=== PATIENT | male | born 1985 | race Two or more races ===

== ENCOUNTER 2018-07-06 19:10 | Inpatient (IN) | payer MEDICAID ==
[~2018-07-06] VITALS: Ht 175.3 cm; Wt 132.9 kg
[2018-07-06 20:27] VITALS: BP 134/81
[2018-07-06] MEDS ORDERED: PNEUMOCOCCAL VACCINE POLYVALENT 0.5 ML VIAL [PPSV23] IM ONE (20:45)
[2018-07-06] MEDS ORDERED: TraZODone HCL 50 MG TABLET PO SCH (21:00)
[2018-07-06] MEDS ORDERED: AMLO2.5T3 PO (22:17)
[2018-07-06] MEDS ORDERED: MELO-107 PO (22:17)
[2018-07-06] MEDS ORDERED: RANO500T3 PO (22:17)
[2018-07-06] MEDS ORDERED: ASPI81 PO (22:17)
[2018-07-06] MEDS ORDERED: PRAV20TA4 PO (22:17)
[2018-07-06] MEDS ORDERED: LOSA50TA25 PO (22:17)
[2018-07-06] MEDS ORDERED: NITR.4 SL (22:17)
[2018-07-06] MEDS ORDERED: METO25 PO (22:17)
[2018-07-06] MEDS ORDERED: ISOS20TA7 PO (22:17)
[2018-07-06] MEDS ORDERED: METF-960 PO (22:32)
[2018-07-06] MEDS ORDERED: TRAZ-219 PO (22:32)
[2018-07-06] MEDS ORDERED: SITA25 PO (22:32)
[2018-07-06] MEDS ORDERED: FAMO20 PO (22:32)
[2018-07-06] MEDS ORDERED: INSLAN SQ (22:32)
[2018-07-06] MEDS ORDERED: BECL10.6 IH (22:32)
[2018-07-06] MEDS ORDERED: ISON100 PO (22:32)
[2018-07-06] MEDS ORDERED: GLIP10 PO (22:32)
[2018-07-06] MEDS ORDERED: GABA-529 PO (22:32)
[2018-07-06] MEDS ORDERED: EPIN0.3P3 IM (22:32)
[2018-07-06] MEDS ORDERED: BACL10TA PO (22:32)
[2018-07-06] MEDS ORDERED: ALBU8.5H8 IH (22:32)
[2018-07-06] MEDS ORDERED: TRAM50TA4 PO (22:32)
[2018-07-07 04:45] VITALS: BP 143/92
[2018-07-07] MEDS ORDERED: DEXTROSE 50%-WATER 25 GM/50 ML SYRINGE IVP PRN (04:45)
[2018-07-07] MEDS ORDERED: NITROGLYCERIN 0.4 MG SUBLINGUAL TABLET #25 SL PRN (04:45)
[2018-07-07] MEDS ORDERED: BENZOCAINE/MENTHOL LOZENGE MM PRN (04:45)
[2018-07-07] MEDS ORDERED: MAGNESIUM HYDROXIDE SUSPENSION 30 ML UDCUP PO PRN (04:45)
[2018-07-07] MEDS ORDERED: MAG HYDROX/AL HYDROX/SIMETH ES 30 ML SUSPENSION UDCUP PO PRN (04:45)
[2018-07-07] MEDS ORDERED: BACITRACIN 28.4 GM OINTMENT TP PRN (04:45)
[2018-07-07] MEDS ORDERED: LOPERAMIDE HCL 2 MG CAPSULE PO PRN (04:45)
[2018-07-07] MEDS ORDERED: ACETAMINOPHEN 325 MG TABLET PO PRN (04:45)
[2018-07-07] MEDS ORDERED: PETROLATUM,WHITE 71 GM JELLY TP PRN (04:45)
[2018-07-07] MEDS ORDERED: IBUPROFEN 600 MG TABLET PO PRN (04:45)
[2018-07-07] MEDS ORDERED: TraMADol HCL 50 MG TABLET PO PRN (04:45)
[2018-07-07] MEDS ORDERED: ONDANSETRON HCL 4 MG TABLET PO PRN (04:45)
[2018-07-07] MEDS ORDERED: CloNIDine HCL 0.1 MG TABLET PO PRN (04:45)
[2018-07-07] MEDS ORDERED: ALBUTEROL SULFATE HFA 90 MCG/PUFF 8 GM INHALER IH PRN (04:45)
[2018-07-07 06:19] LABS: BASOPHILS % (AUTO) 0.9 % (0.0-2.0); EOSINOPHILS % (AUTO) 2.1 % (1.0-6.0); HEMATOCRIT 48.4 % (41-53); LYMPHOCYTES # (AUTO) 3.4 K/uL (1.0-4.8); MEAN CORPUSCULAR HEMOGLOBIN 31.7 pg (26.0-34.0); MEAN CORPUSCULAR HGB CONC 35.2 G/dL (31.0-37.0); MEAN CORPUSCULAR VOLUME 90 fL (80-100); MONOCYTES # (AUTO) 0.7 K/uL (0.1-1.0); MONOCYTES % (AUTO) 8.7 % (2.0-9.0); NEUTROPHILS # (AUTO) 3.7 K/uL (1.8-7.7); NEUTROPHILS % (AUTO) 46.3 % (40.0-70.0); PLATELET COUNT (AUTO) 177 K/uL (150-450); RED BLOOD CELL COUNT(AUTO) 5.36 MIL/uL (4.50-5.90); RED CELL DISTRIBUTION WIDTH 12.8 % (11.5-14.5)
[2018-07-07 06:20] LABS: GLUCOMETER DEV NAME(LOC) 3EI C; GLUCOSE,POINT OF CARE 308 MG/DL (70-110)
[2018-07-07 06:24] LABS: HEMOGLOBIN A1C 9.6 % (4.5-6.2)
[2018-07-07 06:50] LABS: ALANINE AMINOTRANSFERASE 34 U/L (12-78); ALBUMIN 3.5 g/dL (3.4-5.0); ALKALINE PHOSPHATASE 104 U/L (46-116); ANION GAP 6 mmol/L (8-16); ASPARTATE AMINOTRANSFERASE 13 U/L (15-37); BILIRUBIN,TOTAL 0.7 mg/dL (0.1-1.0); CALCIUM, TOTAL 9.1 mg/dL (8.8-10.5); CARBON DIOXIDE 31 mmol/L (22-29); CHLORIDE 100 mmol/L (98-107); CHOL/HDL RATIO 5.5 (4.2-7.3); CHOLESTEROL 186 mg/dL (131-200); CREATININE 0.72 mg/dL (0.60-1.30); FREE T4 (FREE THYROXINE) 1.22 ng/dL (0.76-1.46); GLOMERULAR FILTR. RATE CALC > 60 mL/min (>60); GLUCOSE,RANDOM 284 mg/dL (70-110); HDL CHOLESTEROL 34 mg/dL (40-60); LDL CHOL (CALC.) 118 mg/dL (0-130); POTASSIUM 4.2 mmol/L (3.5-5.1); SODIUM SERUM 137 mmol/L (136-145); TOTAL PROTEIN, SERUM 6.9 g/dL (6.4-8.2); TRIGLYCERIDES 171 mg/dL (15-150); UREA NITROGEN, BLOOD 9 mg/dL (7-18)
[2018-07-07 06:50] LABS: GLUCOMETER DEV NAME(LOC) 3EI C; GLUCOSE,POINT OF CARE 251 MG/DL (70-110)
[2018-07-07] MEDS: INSULIN LISPRO 100 UNITS/ML SQ PRN ×4 (06:58→21:02)
[2018-07-07] MEDS ORDERED: ESCITALOPRAM OXALATE 10 MG TABLET PO SCH (09:00)
[2018-07-07] MEDS: DOCUSATE SODIUM 100 MG CAPSULE PO SCH (09:09)
[2018-07-07] MEDS: OMEPRAZOLE 20 MG CAPSULE PO SCH (09:09)
[2018-07-07] MEDS: ASPIRIN 81 MG CHEWABLE TABLET PO SCH (09:09)
[2018-07-07] MEDS: METOPROLOL TARTRATE 25 MG TABLET PO SCH ×2 (09:09→16:45)
[2018-07-07] MEDS: MELOXICAM 7.5 MG TABLET PO SCH (09:10)
[2018-07-07] MEDS: BECLOMETHASONE DIPR HFA 40 MCG/PUFF 10.6 GM INHALER IH SCH (09:10)
[2018-07-07] MEDS: LOSARTAN POTASSIUM 50 MG TABLET PO SCH (09:10)
[2018-07-07] MEDS: AmLODIPine BESYLATE 2.5 MG TABLET PO SCH (09:10)
[2018-07-07] MEDS: ISOSORBIDE MONONITRATE 30 MG ER TABLET PO SCH (09:10)
[2018-07-07] MEDS: BACLOFEN 10 MG TABLET PO SCH ×3 (09:10→16:45)
[2018-07-07 09:57] VITALS: BP 137/88
[2018-07-07 11:54] LABS: GLUCOMETER DEV NAME(LOC) 3EI C; GLUCOSE,POINT OF CARE 260 MG/DL (70-110)
[2018-07-07] MEDS: GABAPENTIN 100 MG CAPSULE PO SCH ×3 (12:26→20:57)
[2018-07-07 16:54] LABS: GLUCOMETER DEV NAME(LOC) 3EI C; GLUCOSE,POINT OF CARE 385 MG/DL (70-110)
[2018-07-07 18:53] VITALS: BP 150/79
[2018-07-07 20:10] VITALS: BP 150/79
[2018-07-07 20:53] LABS: GLUCOMETER DEV NAME(LOC) 3EI C; GLUCOSE,POINT OF CARE 378 MG/DL (70-110)
[2018-07-07] MEDS: PRAVASTATIN SODIUM 20 MG TABLET PO SCH (20:56)
[2018-07-07] MEDS: INSULIN GLARGINE,HUM.REC.ANLOG 100 UNITS/ML SQ SCH (20:59)
[2018-07-08 05:34] LABS: GLUCOMETER DEV NAME(LOC) 3EI C; GLUCOSE,POINT OF CARE 316 MG/DL (70-110)
[2018-07-08] MEDS: INSULIN LISPRO 100 UNITS/ML SQ PRN ×4 (07:02→21:19)
[2018-07-08 08:41] VITALS: BP 110/67
[2018-07-08] MEDS ORDERED: DULoxetine HCL 20 MG CAPSULE PO SCH (09:00)
[2018-07-08] MEDS: METOPROLOL TARTRATE 25 MG TABLET PO SCH ×2 (09:28→16:12)
[2018-07-08] MEDS: AmLODIPine BESYLATE 2.5 MG TABLET PO SCH (09:28)
[2018-07-08] MEDS: MELOXICAM 7.5 MG TABLET PO SCH (09:28)
[2018-07-08] MEDS: PYRIDOXINE HCL 50 MG TABLET PO SCH (09:28)
[2018-07-08] MEDS: BACLOFEN 10 MG TABLET PO SCH ×3 (09:28→16:12)
[2018-07-08] MEDS: OMEPRAZOLE 20 MG CAPSULE PO SCH (09:28)
[2018-07-08] MEDS: ISONIAZID 300 MG TABLET PO SCH (09:28)
[2018-07-08] MEDS: ISOSORBIDE MONONITRATE 30 MG ER TABLET PO SCH (09:28)
[2018-07-08] MEDS: BECLOMETHASONE DIPR HFA 40 MCG/PUFF 10.6 GM INHALER IH SCH (09:29)
[2018-07-08] MEDS: LOSARTAN POTASSIUM 50 MG TABLET PO SCH (09:29)
[2018-07-08] MEDS: ASPIRIN 81 MG CHEWABLE TABLET PO SCH (09:29)
[2018-07-08] MEDS: GABAPENTIN 100 MG CAPSULE PO SCH ×2 (09:29→13:37)
[2018-07-08] MEDS: DOCUSATE SODIUM 100 MG CAPSULE PO SCH (09:29)
[2018-07-08 11:44] LABS: GLUCOMETER DEV NAME(LOC) 3EI C; GLUCOSE,POINT OF CARE 355 MG/DL (70-110)
[2018-07-08] MEDS: GABAPENTIN 300 MG CAPSULE PO SCH (16:12)
[2018-07-08 16:30] LABS: GLUCOMETER DEV NAME(LOC) 3EI C; GLUCOSE,POINT OF CARE 364 MG/DL (70-110)
[2018-07-08 19:52] VITALS: BP 118/69
[2018-07-08] MEDS: TraZODone HCL 100 MG TABLET PO SCH (21:15)
[2018-07-08] MEDS: PRAZOSIN HCL 1 MG CAPSULE PO SCH (21:15)
[2018-07-08] MEDS: PRAVASTATIN SODIUM 20 MG TABLET PO SCH (21:15)
[2018-07-08 21:19] LABS: GLUCOMETER DEV NAME(LOC) 3EI C; GLUCOSE,POINT OF CARE 304 MG/DL (70-110)
[2018-07-08] MEDS: INSULIN GLARGINE,HUM.REC.ANLOG 100 UNITS/ML SQ SCH (21:20)
[2018-07-09 05:49] LABS: GLUCOMETER DEV NAME(LOC) 3EI C; GLUCOSE,POINT OF CARE 312 MG/DL (70-110)
[2018-07-09] MEDS: INSULIN LISPRO 100 UNITS/ML SQ PRN ×4 (07:13→21:02)
[2018-07-09] MEDS ORDERED: MELOXICAM 7.5 MG TABLET PO SCH (07:30)
[2018-07-09] MEDS: AmLODIPine BESYLATE 2.5 MG TABLET PO SCH (09:39)
[2018-07-09] MEDS: BECLOMETHASONE DIPR HFA 40 MCG/PUFF 10.6 GM INHALER IH SCH (09:39)
[2018-07-09] MEDS: GABAPENTIN 300 MG CAPSULE PO SCH ×3 (09:39→16:49)
[2018-07-09] MEDS: BACLOFEN 10 MG TABLET PO SCH ×3 (09:39→16:50)
[2018-07-09] MEDS: OMEPRAZOLE 20 MG CAPSULE PO SCH (09:39)
[2018-07-09] MEDS: ISONIAZID 300 MG TABLET PO SCH (09:39)
[2018-07-09] MEDS: DULoxetine HCL 30 MG CAPSULE PO SCH (09:39)
[2018-07-09] MEDS: METOPROLOL TARTRATE 25 MG TABLET PO SCH ×2 (09:39→16:52)
[2018-07-09] MEDS: DOCUSATE SODIUM 100 MG CAPSULE PO SCH (09:40)
[2018-07-09] MEDS: ISOSORBIDE MONONITRATE 30 MG ER TABLET PO SCH (09:40)
[2018-07-09] MEDS: ASPIRIN 81 MG CHEWABLE TABLET PO SCH (09:40)
[2018-07-09] MEDS: LOSARTAN POTASSIUM 50 MG TABLET PO SCH (09:40)
[2018-07-09] MEDS: PYRIDOXINE HCL 50 MG TABLET PO SCH (09:40)
[2018-07-09 10:01] VITALS: BP 123/63
[2018-07-09 11:35] LABS: GLUCOMETER DEV NAME(LOC) 3EI C; GLUCOSE,POINT OF CARE 334 MG/DL (70-110)
[2018-07-09] MEDS ORDERED: ISOS30TA6 PO (12:35)
[2018-07-09] MEDS: DICLOFENAC SODIUM 1% 100 GM GEL [2GM] TP SCH ×2 (13:39→20:35)
[2018-07-09 16:54] LABS: GLUCOMETER DEV NAME(LOC) 3EI C; GLUCOSE,POINT OF CARE 276 MG/DL (70-110)
[2018-07-09] MEDS: PRAVASTATIN SODIUM 20 MG TABLET PO SCH (20:33)
[2018-07-09] MEDS: PRAZOSIN HCL 1 MG CAPSULE PO SCH (20:33)
[2018-07-09] MEDS: TraZODone HCL 100 MG TABLET PO SCH (20:33)
[2018-07-09 20:44] LABS: GLUCOMETER DEV NAME(LOC) 3EI C; GLUCOSE,POINT OF CARE 281 MG/DL (70-110)
[2018-07-09 20:52] VITALS: BP 122/74
[2018-07-09] MEDS: HYDROCODONE/ACETAMINOPHEN 5-325 MG TABLET PO PRN (20:59)
[2018-07-09] MEDS ORDERED: INSULIN GLARGINE,HUM.REC.ANLOG 100 UNITS/ML SQ SCH (21:00)
[2018-07-09] MEDS: INSULIN GLARGINE,HUM.REC.ANLOG 100 UNITS/ML SQ SCH (21:01)
[2018-07-09 21:59] VITALS: BP 125/77
[2018-07-09] MEDS: ZOLPIDEM TARTRATE 5 MG TABLET PO PRN (23:54)
[2018-07-09] MEDS: LORazepam 1 MG TABLET PO PRN (23:54)
[2018-07-10 05:34] LABS: GLUCOMETER DEV NAME(LOC) 3EI C; GLUCOSE,POINT OF CARE 235 MG/DL (70-110)
[2018-07-10] MEDS: INSULIN LISPRO 100 UNITS/ML SQ PRN ×4 (07:18→21:25)
[2018-07-10] MEDS: DOCUSATE SODIUM 100 MG CAPSULE PO SCH (08:59)
[2018-07-10] MEDS: ASPIRIN 81 MG CHEWABLE TABLET PO SCH (08:59)
[2018-07-10] MEDS: BECLOMETHASONE DIPR HFA 40 MCG/PUFF 10.6 GM INHALER IH SCH (08:59)
[2018-07-10] MEDS: DULoxetine HCL 30 MG CAPSULE PO SCH (08:59)
[2018-07-10] MEDS: BACLOFEN 10 MG TABLET PO SCH ×3 (09:00→16:53)
[2018-07-10] MEDS: METOPROLOL TARTRATE 25 MG TABLET PO SCH ×2 (09:00→16:52)
[2018-07-10] MEDS: OMEPRAZOLE 20 MG CAPSULE PO SCH (09:00)
[2018-07-10] MEDS: GABAPENTIN 300 MG CAPSULE PO SCH ×3 (09:00→16:52)
[2018-07-10] MEDS: AmLODIPine BESYLATE 2.5 MG TABLET PO SCH (09:00)
[2018-07-10] MEDS: ISONIAZID 300 MG TABLET PO SCH (09:01)
[2018-07-10] MEDS: DICLOFENAC SODIUM 1% 100 GM GEL [2GM] TP SCH ×2 (09:01→21:24)
[2018-07-10] MEDS: PYRIDOXINE HCL 50 MG TABLET PO SCH (09:01)
[2018-07-10] MEDS: ISOSORBIDE MONONITRATE 30 MG ER TABLET PO SCH (09:01)
[2018-07-10] MEDS: LOSARTAN POTASSIUM 50 MG TABLET PO SCH (09:02)
[2018-07-10] MEDS: INSULIN GLARGINE,HUM.REC.ANLOG 100 UNITS/ML SQ SCH ×2 (09:10→21:24)
[2018-07-10 10:34] VITALS: BP 126/65
[2018-07-10] MEDS: LORazepam 1 MG TABLET PO PRN ×2 (11:17→16:52)
[2018-07-10 11:34] LABS: GLUCOMETER DEV NAME(LOC) 3EI C; GLUCOSE,POINT OF CARE 256 MG/DL (70-110)
[2018-07-10 12:50] VITALS: BP 130/70
[2018-07-10] MEDS: HYDROCODONE/ACETAMINOPHEN 5-325 MG TABLET PO PRN (12:55)
[2018-07-10] MEDS: QUEtiapine FUMARATE 100 MG TABLET PO PRN (16:53)
[2018-07-10 17:00] LABS: GLUCOMETER DEV NAME(LOC) 3EI C; GLUCOSE,POINT OF CARE 363 MG/DL (70-110)
[2018-07-10 18:03] VITALS: BP 107/80
[2018-07-10] MEDS: TraZODone HCL 100 MG TABLET PO SCH (20:32)
[2018-07-10] MEDS: PRAZOSIN HCL 1 MG CAPSULE PO SCH (20:32)
[2018-07-10] MEDS: PRAVASTATIN SODIUM 20 MG TABLET PO SCH (20:32)
[2018-07-10 20:49] LABS: GLUCOMETER DEV NAME(LOC) 3EI C; GLUCOSE,POINT OF CARE 330 MG/DL (70-110)
[2018-07-11 05:39] LABS: GLUCOMETER DEV NAME(LOC) 3EI C; GLUCOSE,POINT OF CARE 251 MG/DL (70-110)
[2018-07-11] MEDS: INSULIN LISPRO 100 UNITS/ML SQ PRN ×4 (06:43→21:37)
[2018-07-11 09:50] VITALS: BP 111/78
[2018-07-11] MEDS: LORazepam 1 MG TABLET PO PRN ×2 (09:55→21:35)
[2018-07-11 09:56] VITALS: BP 126/77
[2018-07-11] MEDS: GABAPENTIN 300 MG CAPSULE PO SCH ×3 (09:56→16:41)
[2018-07-11] MEDS: HYDROCODONE/ACETAMINOPHEN 5-325 MG TABLET PO PRN (09:56)
[2018-07-11] MEDS: OMEPRAZOLE 20 MG CAPSULE PO SCH (09:56)
[2018-07-11] MEDS: DULoxetine HCL 30 MG CAPSULE PO SCH (09:57)
[2018-07-11] MEDS: METOPROLOL TARTRATE 25 MG TABLET PO SCH ×2 (09:57→16:41)
[2018-07-11] MEDS: BACLOFEN 10 MG TABLET PO SCH ×3 (09:57→16:41)
[2018-07-11] MEDS: DOCUSATE SODIUM 100 MG CAPSULE PO SCH (09:57)
[2018-07-11] MEDS: ASPIRIN 81 MG CHEWABLE TABLET PO SCH (09:57)
[2018-07-11] MEDS: LOSARTAN POTASSIUM 50 MG TABLET PO SCH (09:58)
[2018-07-11] MEDS: ISOSORBIDE MONONITRATE 30 MG ER TABLET PO SCH (09:58)
[2018-07-11] MEDS: ISONIAZID 300 MG TABLET PO SCH (09:58)
[2018-07-11] MEDS: AmLODIPine BESYLATE 2.5 MG TABLET PO SCH (09:59)
[2018-07-11] MEDS: BECLOMETHASONE DIPR HFA 40 MCG/PUFF 10.6 GM INHALER IH SCH (09:59)
[2018-07-11] MEDS: PYRIDOXINE HCL 50 MG TABLET PO SCH (09:59)
[2018-07-11] MEDS: DICLOFENAC SODIUM 1% 100 GM GEL [2GM] TP SCH ×2 (10:00→21:35)
[2018-07-11] MEDS: INSULIN GLARGINE,HUM.REC.ANLOG 100 UNITS/ML SQ SCH ×2 (10:17→21:36)
[2018-07-11] MEDS: QUEtiapine FUMARATE 100 MG TABLET PO PRN (11:22)
[2018-07-11 11:34] LABS: GLUCOMETER DEV NAME(LOC) 3EI C; GLUCOSE,POINT OF CARE 284 MG/DL (70-110)
[2018-07-11 16:44] LABS: GLUCOMETER DEV NAME(LOC) 3EI C; GLUCOSE,POINT OF CARE 277 MG/DL (70-110)
[2018-07-11 20:10] VITALS: BP 117/76
[2018-07-11 21:34] LABS: GLUCOMETER DEV NAME(LOC) 3EI C; GLUCOSE,POINT OF CARE 312 MG/DL (70-110)
[2018-07-11] MEDS: ZOLPIDEM TARTRATE 5 MG TABLET PO PRN (21:35)
[2018-07-11] MEDS: PRAZOSIN HCL 1 MG CAPSULE PO SCH (21:35)
[2018-07-11] MEDS: PRAVASTATIN SODIUM 20 MG TABLET PO SCH (21:35)
[2018-07-11] MEDS: TraZODone HCL 100 MG TABLET PO SCH (21:35)
[2018-07-12 05:34] LABS: GLUCOMETER DEV NAME(LOC) 3EI C; GLUCOSE,POINT OF CARE 220 MG/DL (70-110)
[2018-07-12] MEDS: INSULIN LISPRO 100 UNITS/ML SQ PRN ×3 (07:18→21:13)
[2018-07-12] MEDS: GABAPENTIN 300 MG CAPSULE PO SCH ×3 (08:07→16:11)
[2018-07-12] MEDS: DOCUSATE SODIUM 100 MG CAPSULE PO SCH (08:07)
[2018-07-12] MEDS: DULoxetine HCL 60 MG CAPSULE PO SCH (08:07)
[2018-07-12] MEDS: ASPIRIN 81 MG CHEWABLE TABLET PO SCH (08:07)
[2018-07-12] MEDS: METOPROLOL TARTRATE 25 MG TABLET PO SCH ×2 (08:07→16:11)
[2018-07-12] MEDS: OMEPRAZOLE 20 MG CAPSULE PO SCH (08:07)
[2018-07-12] MEDS: PYRIDOXINE HCL 50 MG TABLET PO SCH (08:08)
[2018-07-12] MEDS: AmLODIPine BESYLATE 2.5 MG TABLET PO SCH (08:08)
[2018-07-12] MEDS: LOSARTAN POTASSIUM 50 MG TABLET PO SCH (08:08)
[2018-07-12] MEDS: BACLOFEN 10 MG TABLET PO SCH ×3 (08:08→16:12)
[2018-07-12] MEDS: ISOSORBIDE MONONITRATE 30 MG ER TABLET PO SCH (08:08)
[2018-07-12] MEDS: ISONIAZID 300 MG TABLET PO SCH (08:08)
[2018-07-12] MEDS: BECLOMETHASONE DIPR HFA 40 MCG/PUFF 10.6 GM INHALER IH SCH (08:09)
[2018-07-12] MEDS: DICLOFENAC SODIUM 1% 100 GM GEL [2GM] TP SCH ×2 (08:09→21:06)
[2018-07-12] MEDS: INSULIN GLARGINE,HUM.REC.ANLOG 100 UNITS/ML SQ SCH ×2 (08:10→21:09)
[2018-07-12] MEDS: HYDROCODONE/ACETAMINOPHEN 5-325 MG TABLET PO PRN ×2 (08:11→21:05)
[2018-07-12] MEDS: QUEtiapine FUMARATE 100 MG TABLET PO PRN ×3 (08:11→19:11)
[2018-07-12 08:12] VITALS: BP 132/95
[2018-07-12] MEDS: LORazepam 1 MG TABLET PO PRN ×3 (08:12→19:11)
[2018-07-12] MEDS: SitaGLIPtin PHOSPHATE 50 MG TABLET PO SCH (09:34)
[2018-07-12] MEDS: GlipiZIDE 10 MG TABLET PO SCH (09:34)
[2018-07-12 11:29] LABS: GLUCOMETER DEV NAME(LOC) 3EI C; GLUCOSE,POINT OF CARE 327 MG/DL (70-110)
[2018-07-12] MEDS: MetFORMIN HCL 500 MG TABLET PO SCH (16:11)
[2018-07-12 16:30] VITALS: BP 128/79
[2018-07-12] MEDS: ZOLPIDEM TARTRATE 5 MG TABLET PO PRN (21:03)
[2018-07-12] MEDS: PRAVASTATIN SODIUM 20 MG TABLET PO SCH (21:03)
[2018-07-12] MEDS: PRAZOSIN HCL 1 MG CAPSULE PO SCH (21:03)
[2018-07-12] MEDS: TraZODone HCL 100 MG TABLET PO SCH (21:03)
[2018-07-12 21:05] VITALS: BP 118/75
[2018-07-12 22:05] VITALS: BP 114/76
[2018-07-13] MEDS: GlipiZIDE 10 MG TABLET PO SCH (06:46)
[2018-07-13] MEDS: MetFORMIN HCL 500 MG TABLET PO SCH ×2 (06:46→16:47)
[2018-07-13] MEDS: INSULIN LISPRO 100 UNITS/ML SQ PRN ×4 (06:56→21:11)
[2018-07-13] MEDS: BECLOMETHASONE DIPR HFA 40 MCG/PUFF 10.6 GM INHALER IH SCH (08:17)
[2018-07-13] MEDS: DOCUSATE SODIUM 100 MG CAPSULE PO SCH (08:18)
[2018-07-13] MEDS: PYRIDOXINE HCL 50 MG TABLET PO SCH (08:18)
[2018-07-13] MEDS: ISOSORBIDE MONONITRATE 30 MG ER TABLET PO SCH (08:18)
[2018-07-13] MEDS: OMEPRAZOLE 20 MG CAPSULE PO SCH (08:18)
[2018-07-13] MEDS: METOPROLOL TARTRATE 25 MG TABLET PO SCH ×2 (08:18→16:47)
[2018-07-13] MEDS: ASPIRIN 81 MG CHEWABLE TABLET PO SCH (08:18)
[2018-07-13] MEDS: SitaGLIPtin PHOSPHATE 50 MG TABLET PO SCH (08:18)
[2018-07-13] MEDS: BACLOFEN 10 MG TABLET PO SCH ×3 (08:18→16:47)
[2018-07-13] MEDS: LOSARTAN POTASSIUM 50 MG TABLET PO SCH (08:18)
[2018-07-13] MEDS: ISONIAZID 300 MG TABLET PO SCH (08:18)
[2018-07-13] MEDS: GABAPENTIN 300 MG CAPSULE PO SCH ×3 (08:18→16:47)
[2018-07-13] MEDS: DULoxetine HCL 60 MG CAPSULE PO SCH (08:18)
[2018-07-13] MEDS: AmLODIPine BESYLATE 2.5 MG TABLET PO SCH (08:18)
[2018-07-13] MEDS: DICLOFENAC SODIUM 1% 100 GM GEL [2GM] TP SCH ×2 (08:19→21:04)
[2018-07-13] MEDS: INSULIN GLARGINE,HUM.REC.ANLOG 100 UNITS/ML SQ SCH ×2 (08:20→21:13)
[2018-07-13 08:53] VITALS: BP 117/73
[2018-07-13] MEDS: QUEtiapine FUMARATE 100 MG TABLET PO PRN ×3 (08:53→18:05)
[2018-07-13] MEDS: LORazepam 1 MG TABLET PO PRN ×3 (08:53→18:05)
[2018-07-13] MEDS: HYDROCODONE/ACETAMINOPHEN 5-325 MG TABLET PO PRN ×2 (08:53→21:07)
[2018-07-13 11:26] LABS: GLUCOMETER DEV NAME(LOC) 3EI C; GLUCOSE,POINT OF CARE 221 MG/DL (70-110)
[2018-07-13 11:31] LABS: GLUCOMETER DEV NAME(LOC) 3EI C; GLUCOSE,POINT OF CARE 241 MG/DL (70-110)
[2018-07-13 11:32] LABS: GLUCOMETER DEV NAME(LOC) 3EI C; GLUCOSE,POINT OF CARE 213 MG/DL (70-110)
[2018-07-13] MEDS ORDERED: DiphenhydrAMINE HCL 25 MG CAPSULE PO ONE (12:30)
[2018-07-13 16:48] LABS: GLUCOMETER DEV NAME(LOC) 3EI C; GLUCOSE,POINT OF CARE 262 MG/DL (70-110)
[2018-07-13 17:12] VITALS: BP 129/65
[2018-07-13] MEDS: PRAVASTATIN SODIUM 20 MG TABLET PO SCH (21:03)
[2018-07-13] MEDS: TraZODone HCL 100 MG TABLET PO SCH (21:03)
[2018-07-13] MEDS: PRAZOSIN HCL 1 MG CAPSULE PO SCH (21:03)
[2018-07-13 21:06] VITALS: BP 113/79
[2018-07-13 21:08] LABS: GLUCOMETER DEV NAME(LOC) 3EI C; GLUCOSE,POINT OF CARE 254 MG/DL (70-110)
[2018-07-13] MEDS: ZOLPIDEM TARTRATE 5 MG TABLET PO PRN (21:53)
[2018-07-14 05:40] LABS: GLUCOMETER DEV NAME(LOC) 3EI C; GLUCOSE,POINT OF CARE 174 MG/DL (70-110)
[2018-07-14] MEDS: GlipiZIDE 10 MG TABLET PO SCH (06:56)
[2018-07-14] MEDS: MetFORMIN HCL 500 MG TABLET PO SCH ×2 (06:57→16:56)
[2018-07-14] MEDS: INSULIN LISPRO 100 UNITS/ML SQ PRN ×3 (07:13→21:21)
[2018-07-14] MEDS: METOPROLOL TARTRATE 25 MG TABLET PO SCH ×2 (09:39→16:57)
[2018-07-14] MEDS: AmLODIPine BESYLATE 2.5 MG TABLET PO SCH (09:40)
[2018-07-14] MEDS: SitaGLIPtin PHOSPHATE 50 MG TABLET PO SCH (09:40)
[2018-07-14] MEDS: PYRIDOXINE HCL 50 MG TABLET PO SCH (09:40)
[2018-07-14] MEDS: ISONIAZID 300 MG TABLET PO SCH (09:40)
[2018-07-14] MEDS: DOCUSATE SODIUM 100 MG CAPSULE PO SCH (09:40)
[2018-07-14] MEDS: LOSARTAN POTASSIUM 50 MG TABLET PO SCH (09:40)
[2018-07-14] MEDS: GABAPENTIN 300 MG CAPSULE PO SCH ×2 (09:40→12:37)
[2018-07-14] MEDS: DULoxetine HCL 60 MG CAPSULE PO SCH (09:40)
[2018-07-14] MEDS: OMEPRAZOLE 20 MG CAPSULE PO SCH (09:40)
[2018-07-14] MEDS: ASPIRIN 81 MG CHEWABLE TABLET PO SCH (09:40)
[2018-07-14] MEDS: ISOSORBIDE MONONITRATE 30 MG ER TABLET PO SCH (09:41)
[2018-07-14] MEDS: BACLOFEN 10 MG TABLET PO SCH ×3 (09:41→16:56)
[2018-07-14] MEDS: BECLOMETHASONE DIPR HFA 40 MCG/PUFF 10.6 GM INHALER IH SCH (09:41)
[2018-07-14] MEDS: DICLOFENAC SODIUM 1% 100 GM GEL [2GM] TP SCH ×2 (09:42→20:25)
[2018-07-14] MEDS: INSULIN GLARGINE,HUM.REC.ANLOG 100 UNITS/ML SQ SCH ×2 (09:49→21:20)
[2018-07-14 10:05] VITALS: BP 123/64
[2018-07-14 11:05] VITALS: BP 133/86
[2018-07-14] MEDS: LORazepam 1 MG TABLET PO PRN ×2 (11:05→21:31)
[2018-07-14] MEDS: HYDROCODONE/ACETAMINOPHEN 5-325 MG TABLET PO PRN (11:05)
[2018-07-14] MEDS: QUEtiapine FUMARATE 100 MG TABLET PO PRN ×2 (11:05→20:21)
[2018-07-14 11:25] LABS: GLUCOMETER DEV NAME(LOC) 3EI C; GLUCOSE,POINT OF CARE 99 MG/DL (70-110)
[2018-07-14] MEDS: GABAPENTIN 400 MG CAPSULE PO SCH ×2 (13:00→16:56)
[2018-07-14] MEDS: DiphenhydrAMINE HCL 25 MG CAPSULE PO SCH (16:56)
[2018-07-14 17:21] LABS: GLUCOMETER DEV NAME(LOC) 3EI C; GLUCOSE,POINT OF CARE 174 MG/DL (70-110)
[2018-07-14] MEDS: TraZODone HCL 100 MG TABLET PO SCH (20:17)
[2018-07-14] MEDS: PRAZOSIN HCL 1 MG CAPSULE PO SCH (20:17)
[2018-07-14] MEDS: PRAVASTATIN SODIUM 20 MG TABLET PO SCH (20:18)
[2018-07-14 21:27] VITALS: BP 119/71
[2018-07-14] MEDS: ZOLPIDEM TARTRATE 5 MG TABLET PO PRN (21:31)
[2018-07-14 22:04] LABS: GLUCOMETER DEV NAME(LOC) 3EI C; GLUCOSE,POINT OF CARE 151 MG/DL (70-110)
[2018-07-15] MEDS: DiphenhydrAMINE HCL 25 MG CAPSULE PO SCH ×3 (00:09→16:54)
[2018-07-15 05:44] LABS: GLUCOMETER DEV NAME(LOC) 3EI C; GLUCOSE,POINT OF CARE 183 MG/DL (70-110)
[2018-07-15] MEDS: GlipiZIDE 10 MG TABLET PO SCH (07:00)
[2018-07-15] MEDS: MetFORMIN HCL 500 MG TABLET PO SCH ×2 (07:00→16:55)
[2018-07-15] MEDS: INSULIN LISPRO 100 UNITS/ML SQ PRN ×2 (07:10→20:57)
[2018-07-15] MEDS: DICLOFENAC SODIUM 1% 100 GM GEL [2GM] TP SCH ×2 (09:00→21:30)
[2018-07-15] MEDS ORDERED: DULoxetine HCL 30 MG CAPSULE PO SCH (09:00)
[2018-07-15] MEDS: OMEPRAZOLE 20 MG CAPSULE PO SCH (09:06)
[2018-07-15] MEDS: AmLODIPine BESYLATE 2.5 MG TABLET PO SCH (09:06)
[2018-07-15] MEDS: METOPROLOL TARTRATE 25 MG TABLET PO SCH ×2 (09:06→16:54)
[2018-07-15] MEDS: PYRIDOXINE HCL 50 MG TABLET PO SCH (09:06)
[2018-07-15] MEDS: ASPIRIN 81 MG CHEWABLE TABLET PO SCH (09:06)
[2018-07-15] MEDS: GABAPENTIN 400 MG CAPSULE PO SCH ×3 (09:06→16:58)
[2018-07-15] MEDS: DOCUSATE SODIUM 100 MG CAPSULE PO SCH (09:06)
[2018-07-15] MEDS: BACLOFEN 10 MG TABLET PO SCH ×3 (09:06→16:54)
[2018-07-15] MEDS: BECLOMETHASONE DIPR HFA 40 MCG/PUFF 10.6 GM INHALER IH SCH (09:07)
[2018-07-15] MEDS: ISOSORBIDE MONONITRATE 30 MG ER TABLET PO SCH (09:07)
[2018-07-15] MEDS: SitaGLIPtin PHOSPHATE 50 MG TABLET PO SCH (09:08)
[2018-07-15] MEDS: ISONIAZID 300 MG TABLET PO SCH (09:08)
[2018-07-15] MEDS: LOSARTAN POTASSIUM 50 MG TABLET PO SCH (09:08)
[2018-07-15] MEDS: LORazepam 1 MG TABLET PO PRN ×3 (09:12→20:48)
[2018-07-15] MEDS: QUEtiapine FUMARATE 100 MG TABLET PO PRN ×3 (09:12→20:50)
[2018-07-15] MEDS: INSULIN GLARGINE,HUM.REC.ANLOG 100 UNITS/ML SQ SCH ×2 (09:49→20:58)
[2018-07-15 10:14] VITALS: BP 105/58
[2018-07-15 11:55] LABS: GLUCOMETER DEV NAME(LOC) 3EI C; GLUCOSE,POINT OF CARE 112 MG/DL (70-110)
[2018-07-15] MEDS: HYDROCODONE/ACETAMINOPHEN 5-325 MG TABLET PO PRN ×2 (13:32→20:49)
[2018-07-15 17:21] VITALS: BP 128/76
[2018-07-15] MEDS: PRAVASTATIN SODIUM 20 MG TABLET PO SCH (20:46)
[2018-07-15] MEDS: PRAZOSIN HCL 1 MG CAPSULE PO SCH (20:46)
[2018-07-15] MEDS: TraZODone HCL 100 MG TABLET PO SCH (20:49)
[2018-07-15 20:50] VITALS: BP 118/73
[2018-07-15 20:58] LABS: GLUCOMETER DEV NAME(LOC) 3EI C; GLUCOSE,POINT OF CARE 140 MG/DL (70-110)
[2018-07-15 21:50] VITALS: BP 116/67
[2018-07-15] MEDS: ZOLPIDEM TARTRATE 5 MG TABLET PO PRN (22:03)
[2018-07-16] MEDS: DiphenhydrAMINE HCL 25 MG CAPSULE PO SCH ×3 (00:05→16:52)
[2018-07-16 01:55] LABS: GLUCOMETER DEV NAME(LOC) 3EI C; GLUCOSE,POINT OF CARE 217 MG/DL (70-110)
[2018-07-16] MEDS: GlipiZIDE 10 MG TABLET PO SCH (06:56)
[2018-07-16] MEDS: MetFORMIN HCL 500 MG TABLET PO SCH ×2 (06:57→16:52)
[2018-07-16] MEDS: INSULIN LISPRO 100 UNITS/ML SQ PRN ×2 (07:04→16:55)
[2018-07-16] MEDS: ISOSORBIDE MONONITRATE 30 MG ER TABLET PO SCH (08:30)
[2018-07-16] MEDS: PYRIDOXINE HCL 50 MG TABLET PO SCH (08:30)
[2018-07-16] MEDS: BACLOFEN 10 MG TABLET PO SCH ×3 (08:30→16:52)
[2018-07-16] MEDS: METOPROLOL TARTRATE 25 MG TABLET PO SCH ×2 (08:30→16:52)
[2018-07-16] MEDS: GABAPENTIN 400 MG CAPSULE PO SCH ×3 (08:30→16:52)
[2018-07-16] MEDS: OMEPRAZOLE 20 MG CAPSULE PO SCH (08:30)
[2018-07-16] MEDS: ASPIRIN 81 MG CHEWABLE TABLET PO SCH (08:30)
[2018-07-16] MEDS: DOCUSATE SODIUM 100 MG CAPSULE PO SCH (08:30)
[2018-07-16] MEDS: ISONIAZID 300 MG TABLET PO SCH (08:30)
[2018-07-16] MEDS: AmLODIPine BESYLATE 2.5 MG TABLET PO SCH (08:30)
[2018-07-16] MEDS: BECLOMETHASONE DIPR HFA 40 MCG/PUFF 10.6 GM INHALER IH SCH (08:31)
[2018-07-16] MEDS: LOSARTAN POTASSIUM 50 MG TABLET PO SCH (08:31)
[2018-07-16] MEDS: DICLOFENAC SODIUM 1% 100 GM GEL [2GM] TP SCH (08:31)
[2018-07-16] MEDS: SitaGLIPtin PHOSPHATE 50 MG TABLET PO SCH (08:31)
[2018-07-16] MEDS: INSULIN GLARGINE,HUM.REC.ANLOG 100 UNITS/ML SQ SCH (08:34)
[2018-07-16] MEDS: LORazepam 1 MG TABLET PO PRN ×2 (08:52→14:07)
[2018-07-16] MEDS: QUEtiapine FUMARATE 100 MG TABLET PO PRN ×2 (08:52→14:07)
[2018-07-16 09:00] VITALS: BP 140/90
[2018-07-16] MEDS ORDERED: DULoxetine HCL 20 MG CAPSULE PO SCH (09:00)
[2018-07-16 10:10] LABS: GLUCOMETER DEV NAME(LOC) 3EI C; GLUCOSE,POINT OF CARE 193 MG/DL (70-110)
[2018-07-16 12:35] VITALS: BP 135/86
[2018-07-16] MEDS: HYDROCODONE/ACETAMINOPHEN 5-325 MG TABLET PO PRN (12:35)
[2018-07-16] MEDS ORDERED: PRAZ1 PO ×2 (14:34→15:25)
[2018-07-16] MEDS ORDERED: TRAZ-220 PO ×2 (14:34→15:30)
[2018-07-16] MEDS ORDERED: GABA-533 PO (14:34)
[2018-07-16] MEDS ORDERED: DULO20CA30 PO (14:34)
[2018-07-16] MEDS ORDERED: ASPI81 PO (15:17)
[2018-07-16] MEDS ORDERED: BECL10.6 IH (15:18)
[2018-07-16] MEDS ORDERED: AMLO2.5T3 PO (15:18)
[2018-07-16] MEDS ORDERED: BACL10TA PO (15:18)
[2018-07-16] MEDS ORDERED: DSS100 PO (15:19)
[2018-07-16] MEDS ORDERED: DIPH25 PO (15:20)
[2018-07-16] MEDS ORDERED: INSLAN SQ (15:21)
[2018-07-16] MEDS ORDERED: GLIP10 PO (15:21)
[2018-07-16] MEDS ORDERED: ISON300 PO (15:22)
[2018-07-16] MEDS ORDERED: ISOS30TA6 PO (15:23)
[2018-07-16] MEDS ORDERED: LOSA50TA25 PO (15:23)
[2018-07-16] MEDS ORDERED: METF-960 PO (15:24)
[2018-07-16] MEDS ORDERED: METO25 PO (15:24)
[2018-07-16] MEDS ORDERED: OMEP20 PO (15:25)
[2018-07-16] MEDS ORDERED: PRAV20TA4 PO (15:25)
[2018-07-16] MEDS ORDERED: SITA50 PO (15:28)
[2018-07-16] MEDS ORDERED: SULF500T60 PO (15:29)
[2018-07-16] MEDS ORDERED: DICL2100G TP (16:03)
[2018-07-16] MEDS ORDERED: PYRI50TA9 PO (16:03)
[2018-07-16 22:30] LABS: GLUCOMETER DEV NAME(LOC) 3EI C; GLUCOSE,POINT OF CARE 113 MG/DL (70-110)
[2018-07-17 07:45] LABS: GLUCOMETER DEV NAME(LOC) 3EI C; GLUCOSE,POINT OF CARE 201 MG/DL (70-110)
== END 2018-07-16 17:30 | disposition home or self-care (01) | DRG 754 ==
LOC: 3EI 20:33
PROVIDERS: ADMIT Psychiatry & Neurology Psychiatry; ATTEND Psychiatry & Neurology Psychiatry
DX: F32.9 Major depressive disorder, single episode, unspecified (principal); R45.851 Suicidal ideations; E66.01 Morbid (severe) obesity due to excess calories; I69.351 Hemiplegia and hemiparesis following cerebral infarction affecting right dominant side; E11.9 Type 2 diabetes mellitus without complications; A15.9 Respiratory tuberculosis unspecified; F43.12 Post-traumatic stress disorder, chronic; M45.9 Ankylosing spondylitis of unspecified sites in spine; G47.00 Insomnia, unspecified; G47.30 Sleep apnea, unspecified; J45.909 Unspecified asthma, uncomplicated; Z23 Encounter for immunization; Z79.899 Other long term (current) drug therapy
CPT/HCPCS: 83036; 84439; 84443; 90686; J1815; J3535

== ENCOUNTER 2018-07-06 22:01 | Emergency (ER) | payer MEDICAID, OTHER ==
[~2018-07-06] VITALS: Ht 165.1 cm; Wt 125.0 kg
[2018-07-06] MEDS ORDERED: NITR.4 SL (22:17)
[2018-07-06] MEDS ORDERED: ISOS20TA7 PO (22:17)
[2018-07-06] MEDS ORDERED: LOSA50TA25 PO (22:17)
[2018-07-06] MEDS ORDERED: PRAV20TA4 PO (22:17)
[2018-07-06] MEDS ORDERED: RANO500T3 PO (22:17)
[2018-07-06] MEDS ORDERED: AMLO2.5T3 PO (22:17)
[2018-07-06] MEDS ORDERED: METO25 PO (22:17)
[2018-07-06] MEDS ORDERED: ASPI81 PO (22:17)
[2018-07-06] MEDS ORDERED: MELO-107 PO (22:17)
[2018-07-06] MEDS ORDERED: FAMO20 PO (22:32)
[2018-07-06] MEDS ORDERED: GLIP10 PO (22:32)
[2018-07-06] MEDS ORDERED: TRAZ-219 PO (22:32)
[2018-07-06] MEDS ORDERED: SITA25 PO (22:32)
[2018-07-06] MEDS ORDERED: METF-960 PO (22:32)
[2018-07-06] MEDS ORDERED: BACL10TA PO (22:32)
[2018-07-06] MEDS ORDERED: ALBU8.5H8 IH (22:32)
[2018-07-06] MEDS ORDERED: GABA-529 PO (22:32)
[2018-07-06] MEDS ORDERED: ISON100 PO (22:32)
[2018-07-06] MEDS ORDERED: EPIN0.3P3 IM (22:32)
[2018-07-06] MEDS ORDERED: BECL10.6 IH (22:32)
[2018-07-06] MEDS ORDERED: INSLAN SQ (22:32)
[2018-07-06] MEDS ORDERED: TRAM50TA4 PO (22:32)
[2018-07-06 22:39] LABS: BASOPHILS % (AUTO) 1.4 % (0.0-2.0); EOSINOPHILS % (AUTO) 2.5 % (1.0-6.0); HEMATOCRIT 50.5 % (41-53); HEMOGLOBIN 17.8 g/dL (13.5-17.5); LYMPHOCYTES # (AUTO) 4.4 K/uL (1.0-4.8); LYMPHOCYTES % (AUTO) 48.3 % (22.0-44.0); MEAN CORPUSCULAR HEMOGLOBIN 31.3 pg (26.0-34.0); MEAN CORPUSCULAR HGB CONC 35.1 G/dL (31.0-37.0); MEAN CORPUSCULAR VOLUME 89 fL (80-100); MONOCYTES # (AUTO) 0.6 K/uL (0.1-1.0); MONOCYTES % (AUTO) 6.9 % (2.0-9.0); NEUTROPHILS # (AUTO) 3.7 K/uL (1.8-7.7); NEUTROPHILS % (AUTO) 40.9 % (40.0-70.0); PLATELET COUNT (AUTO) 200 K/uL (150-450); RED BLOOD CELL COUNT(AUTO) 5.66 MIL/uL (4.50-5.90); RED CELL DISTRIBUTION WIDTH 12.8 % (11.5-14.5)
[2018-07-06 22:44] LABS: GLUCOSE,POINT OF CARE 405 MG/DL (70-110)
[2018-07-06 22:51] LABS: ANION GAP 5 mmol/L (8-16); CALCIUM, TOTAL 9.2 mg/dL (8.8-10.5); CARBON DIOXIDE 30 mmol/L (22-29); CHLORIDE 99 mmol/L (98-107); CREATININE 0.91 mg/dL (0.60-1.30); GLOMERULAR FILTR. RATE CALC > 60 mL/min (>60); GLUCOSE,RANDOM 378 mg/dL (70-110); POTASSIUM 4.4 mmol/L (3.5-5.1); SODIUM SERUM 134 mmol/L (136-145); UREA NITROGEN, BLOOD 10 mg/dL (7-18)
[2018-07-06 22:59] LABS: ALANINE AMINOTRANSFERASE 34 U/L (12-78); ALBUMIN 3.6 g/dL (3.4-5.0); ALKALINE PHOSPHATASE 122 U/L (46-116); ASPARTATE AMINOTRANSFERASE 12 U/L (15-37); BILIRUBIN,TOTAL 0.6 mg/dL (0.1-1.0); TOTAL PROTEIN, SERUM 7.6 g/dL (6.4-8.2)
[2018-07-07 01:59] LABS: GLUCOSE,POINT OF CARE 322 MG/DL (70-110)
[2018-07-07] MEDS ORDERED: INSULIN REGULAR, HUMAN 100 UNITS/ML SQ ONE ×2 (02:30→03:45)
[2018-07-07 03:32] VITALS: BP 156/90
[2018-07-07 03:53] LABS: GLUCOSE,POINT OF CARE 313 MG/DL (70-110)
[2018-07-07 04:39] LABS: GLUCOSE,POINT OF CARE 314 MG/DL (70-110)
== END 2018-07-07 04:38 | disposition other institution (70) ==
LOC: EMS 22:02
DX: F32.9 Major depressive disorder, single episode, unspecified (principal); J45.909 Unspecified asthma, uncomplicated; F41.9 Anxiety disorder, unspecified; E11.9 Type 2 diabetes mellitus without complications; R76.11 Nonspecific reaction to tuberculin skin test without active tuberculosis; Z88.0 Allergy status to penicillin; Z91.013 Allergy to seafood; Z79.82 Long term (current) use of aspirin; Z79.899 Other long term (current) drug therapy; Z79.4 Long term (current) use of insulin
CPT/HCPCS: 36415; 71045; 80053; 82962; 85025; 96372; 99285; J1815

== ENCOUNTER 2018-08-10 18:53 | Inpatient (IN) | payer MEDICAID, OTHER ==
[~2018-08-10] VITALS: Ht 177.8 cm; Wt 130.0 kg
[~2018-08-10 18:53] MED LIST: AMLO2.5T3 PO; ASPI81 PO; BACL10TA PO; BECL10.6 IH; DICL2100G TP; DIPH25 PO; DSS100 PO; DULO20CA30 PO; GABA-533 PO; GLIP10 PO; INSLAN SQ; ISON300 PO; ISOS30TA6 PO; LOSA50TA25 PO; METF-960 PO; METO25 PO; OMEP20 PO; PRAV20TA4 PO; PRAZ1 PO; PYRI50TA9 PO; SITA50 PO; SULF500T60 PO; TRAZ-220 PO
[2018-08-10 19:39] LABS: GLUCOSE,POINT OF CARE 242 MG/DL (70-110)
[2018-08-10 20:38] LABS: BASOPHILS % (AUTO) 1.2 % (0.0-2.0); HEMATOCRIT 51.1 % (41-53); HEMOGLOBIN 17.9 g/dL (13.5-17.5); LYMPHOCYTES # (AUTO) 4.8 K/uL (1.0-4.8); LYMPHOCYTES % (AUTO) 46.2 % (22.0-44.0); MEAN CORPUSCULAR HEMOGLOBIN 31.2 pg (26.0-34.0); MEAN CORPUSCULAR HGB CONC 34.9 G/dL (31.0-37.0); MEAN CORPUSCULAR VOLUME 89 fL (80-100); MONOCYTES # (AUTO) 0.8 K/uL (0.1-1.0); MONOCYTES % (AUTO) 7.5 % (2.0-9.0); NEUTROPHILS # (AUTO) 4.5 K/uL (1.8-7.7); NEUTROPHILS % (AUTO) 44.1 % (40.0-70.0); PLATELET COUNT (AUTO) 225 K/uL (150-450); RED BLOOD CELL COUNT(AUTO) 5.73 MIL/uL (4.50-5.90)
[2018-08-10 20:48] LABS: ANION GAP 4 mmol/L (8-16); CALCIUM, TOTAL 9.5 mg/dL (8.8-10.5); CARBON DIOXIDE 30 mmol/L (22-29); CHLORIDE 99 mmol/L (98-107); CREATININE 0.82 mg/dL (0.60-1.30); GLOMERULAR FILTR. RATE CALC > 60 mL/min (>60); GLUCOSE,RANDOM 244 mg/dL (70-110); POTASSIUM 4.5 mmol/L (3.5-5.1); SODIUM SERUM 133 mmol/L (136-145); UREA NITROGEN, BLOOD 11 mg/dL (7-18)
[2018-08-10 20:55] LABS: ALANINE AMINOTRANSFERASE 38 U/L (12-78); ALBUMIN 3.9 g/dL (3.4-5.0); ALKALINE PHOSPHATASE 94 U/L (46-116); ASPARTATE AMINOTRANSFERASE 19 U/L (15-37); BILIRUBIN,TOTAL 0.9 mg/dL (0.1-1.0); TOTAL PROTEIN, SERUM 7.9 g/dL (6.4-8.2)
[2018-08-10] MEDS ORDERED: VITAD1000 PO (23:33)
[2018-08-10] MEDS ORDERED: PYRI50TA9 PO (23:33)
[2018-08-10] MEDS ORDERED: PRAZ2 PO (23:33)
[2018-08-10] MEDS ORDERED: DULO60CA44 PO (23:33)
[2018-08-11] MEDS: LORazepam 1 MG TABLET PO PRN (00:02)
[2018-08-11] MEDS: DiphenhydrAMINE HCL 25 MG CAPSULE PO SCH ×3 (00:33→17:30)
[2018-08-11 01:41] LABS: APPEARANCE,URINE CLOUDY (CLEAR); BILIRUBIN,URINE NEGATIVE (NEGATIVE); GLUCOSE, URINE (UA) >=1000 mg/dL (NEGATIVE); KETONES,URINE TRACE mg/dL (NEGATIVE); LEUKOCYTE ESTERASE ,URINE NEGATIVE (NEGATIVE); NITRATE,URINE NEGATIVE (NEGATIVE); OCCULT BLOOD,URINE NEGATIVE (NEGATIVE); PH,URINE 6.5 (5.0-8.0); PROTEIN,URINE NEGATIVE (NEGATIVE)
[2018-08-11 01:45] LABS: AMPHET/METH SCREEN,URINE NEGATIVE (NEGATIVE); BARBITURATE SCREEN, URINE NEGATIVE (NEGATIVE); BENZODIAZEPINES SCREEN,URINE NEGATIVE (NEGATIVE); CANNABINOID SCREEN,URINE NEGATIVE (NEGATIVE); COCAINE SCREEN,URINE NEGATIVE (NEGATIVE); METHADONE SCREEN, URINE NEGATIVE (NEGATIVE); OPIATE SCREEN,URINE NEGATIVE (NEGATIVE)
[2018-08-11 01:46] LABS: PHENCYCLIDINE SCREEN,URINE NEGATIVE (NEGATIVE)
[2018-08-11 01:55] LABS: BACTERIA,URINE Few /HPF (None Seen); CALCIUM OXALATE CRYSTALS,UR Many /LPF (None Seen); RBC,URINE 0-2 /HPF (0-2); WBC,URINE 0-2 /HPF (0-5)
[2018-08-11 02:13] VITALS: BP 139/80
[2018-08-11] MEDS ORDERED: PNEUMOCOCCAL VACCINE POLYVALENT 0.5 ML VIAL [PPSV23] IM ONE (05:00)
[2018-08-11 06:24] LABS: GLUCOMETER DEV NAME(LOC) 3EI C; GLUCOSE,POINT OF CARE 249 MG/DL (70-110)
[2018-08-11 07:21] LABS: HEMOGLOBIN A1C 8.7 % (4.5-6.2)
[2018-08-11 07:40] LABS: CHOL/HDL RATIO 5.1 (4.2-7.3); FREE T4 (FREE THYROXINE) 1.23 ng/dL (0.76-1.46); THYROID STIMULATING HORMONE 1.24 uIU/mL (0.36-3.74)
[2018-08-11] MEDS ORDERED: DEXTROSE 50%-WATER 25 GM/50 ML SYRINGE IVP PRN (07:45)
[2018-08-11] MEDS ORDERED: DULoxetine HCL 20 MG CAPSULE PO SCH (09:00)
[2018-08-11 09:43] VITALS: BP 112/62
[2018-08-11] MEDS ORDERED: MAG HYDROX/AL HYDROX/SIMETH ES 30 ML SUSPENSION UDCUP PO PRN (11:30)
[2018-08-11] MEDS ORDERED: HydrOXYzine PAMOATE 50 MG CAPSULE PO PRN (11:30)
[2018-08-11] MEDS ORDERED: MAGNESIUM HYDROXIDE SUSPENSION 30 ML UDCUP PO PRN (11:30)
[2018-08-11] MEDS ORDERED: LOPERAMIDE HCL 2 MG CAPSULE PO PRN ×2 (11:30→21:45)
[2018-08-11] MEDS ORDERED: GuaiFENesin/D-METHORPHAN [SUGAR-FREE] 200-20MG/10 ML SYRUP UDCUP PO PRN (11:30)
[2018-08-11] MEDS ORDERED: ACETAMINOPHEN 325 MG TABLET PO PRN (11:30)
[2018-08-11] MEDS ORDERED: PROMETHAZINE HCL 25 MG TABLET PO PRN (11:30)
[2018-08-11 11:48] LABS: GLUCOMETER DEV NAME(LOC) 3EI C; GLUCOSE,POINT OF CARE 225 MG/DL (70-110)
[2018-08-11] MEDS: GABAPENTIN 400 MG CAPSULE PO SCH ×3 (12:24→17:30)
[2018-08-11] MEDS: INSULIN LISPRO 100 UNITS/ML SQ PRN ×3 (12:34→21:39)
[2018-08-11 16:38] LABS: GLUCOMETER DEV NAME(LOC) 3EI C; GLUCOSE,POINT OF CARE 232 MG/DL (70-110)
[2018-08-11] MEDS: THIAMINE HCL 100 MG TABLET PO SCH (17:30)
[2018-08-11 18:38] VITALS: BP 141/78
[2018-08-11] MEDS: TraZODone HCL 100 MG TABLET PO SCH (20:33)
[2018-08-11] MEDS ORDERED: DOCUSATE SODIUM 100 MG CAPSULE PO PRN (21:45)
[2018-08-11] MEDS ORDERED: IBUPROFEN 600 MG TABLET PO PRN (21:45)
[2018-08-11] MEDS ORDERED: BENZOCAINE/MENTHOL LOZENGE MM PRN (21:45)
[2018-08-11] MEDS ORDERED: ONDANSETRON HCL 4 MG TABLET PO PRN (21:45)
[2018-08-11] MEDS ORDERED: BACITRACIN 28.4 GM OINTMENT TP PRN (21:45)
[2018-08-11] MEDS ORDERED: CloNIDine HCL 0.1 MG TABLET PO PRN (21:45)
[2018-08-11] MEDS ORDERED: ALBUTEROL SULFATE HFA 90 MCG/PUFF 8 GM INHALER IH PRN (21:45)
[2018-08-11] MEDS ORDERED: PETROLATUM,WHITE 71 GM JELLY TP PRN (21:45)
[2018-08-11 21:48] LABS: GLUCOMETER DEV NAME(LOC) 3EI C; GLUCOSE,POINT OF CARE 267 MG/DL (70-110)
[2018-08-12 05:39] LABS: GLUCOMETER DEV NAME(LOC) 3EI C; GLUCOSE,POINT OF CARE 221 MG/DL (70-110)
[2018-08-12] MEDS: MetFORMIN HCL 500 MG TABLET PO SCH ×2 (06:46→17:39)
[2018-08-12] MEDS: INSULIN LISPRO 100 UNITS/ML SQ PRN ×5 (06:48→20:35)
[2018-08-12] MEDS: DiphenhydrAMINE HCL 25 MG CAPSULE PO SCH ×4 (08:00→17:26)
[2018-08-12] MEDS: GABAPENTIN 400 MG CAPSULE PO SCH ×2 (08:54→11:48)
[2018-08-12] MEDS: MULTIVITAMINS WITH MINERALS, THERAPEUTIC TABLET PO SCH (08:54)
[2018-08-12] MEDS: ISOSORBIDE MONONITRATE 30 MG ER TABLET PO SCH (08:54)
[2018-08-12] MEDS: FOLIC ACID 1 MG TABLET PO SCH (08:54)
[2018-08-12] MEDS: OMEPRAZOLE 20 MG CAPSULE PO SCH (08:54)
[2018-08-12] MEDS: THIAMINE HCL 100 MG TABLET PO SCH ×2 (08:54→17:27)
[2018-08-12] MEDS: DULoxetine HCL 60 MG CAPSULE PO SCH (08:56)
[2018-08-12 10:16] VITALS: BP 142/65
[2018-08-12] MEDS: LORazepam 1 MG TABLET PO PRN (10:48)
[2018-08-12 11:19] LABS: GLUCOMETER DEV NAME(LOC) 3EI C; GLUCOSE,POINT OF CARE 231 MG/DL (70-110)
[2018-08-12 11:45] VITALS: BP 142/68
[2018-08-12 17:15] VITALS: BP 129/74
[2018-08-12] MEDS: GABAPENTIN 300 MG CAPSULE PO SCH (17:27)
[2018-08-12 17:43] LABS: GLUCOMETER DEV NAME(LOC) 3EI C; GLUCOSE,POINT OF CARE 219 MG/DL (70-110)
[2018-08-12] MEDS: TraZODone HCL 100 MG TABLET PO SCH (20:29)
[2018-08-12 20:38] LABS: GLUCOMETER DEV NAME(LOC) 3EI C; GLUCOSE,POINT OF CARE 353 MG/DL (70-110)
[2018-08-13] MEDS: DiphenhydrAMINE HCL 25 MG CAPSULE PO SCH ×3 (00:04→16:34)
[2018-08-13 05:58] LABS: GLUCOMETER DEV NAME(LOC) 3EI C; GLUCOSE,POINT OF CARE 197 MG/DL (70-110)
[2018-08-13] MEDS: MetFORMIN HCL 500 MG TABLET PO SCH ×2 (06:54→16:34)
[2018-08-13] MEDS: INSULIN LISPRO 100 UNITS/ML SQ PRN ×4 (07:04→22:04)
[2018-08-13] MEDS: THIAMINE HCL 100 MG TABLET PO SCH ×2 (08:42→16:34)
[2018-08-13] MEDS: MULTIVITAMINS WITH MINERALS, THERAPEUTIC TABLET PO SCH (08:42)
[2018-08-13] MEDS: ISOSORBIDE MONONITRATE 30 MG ER TABLET PO SCH (08:42)
[2018-08-13] MEDS: DULoxetine HCL 60 MG CAPSULE PO SCH (08:42)
[2018-08-13] MEDS: FOLIC ACID 1 MG TABLET PO SCH (08:42)
[2018-08-13] MEDS: GABAPENTIN 300 MG CAPSULE PO SCH ×3 (08:42→16:34)
[2018-08-13] MEDS: OMEPRAZOLE 20 MG CAPSULE PO SCH (08:42)
[2018-08-13 09:28] VITALS: BP 136/74
[2018-08-13 10:43] LABS: GLUCOMETER DEV NAME(LOC) 3EI C; GLUCOSE,POINT OF CARE 264 MG/DL (70-110)
[2018-08-13 17:03] LABS: GLUCOMETER DEV NAME(LOC) 3EI C; GLUCOSE,POINT OF CARE 278 MG/DL (70-110)
[2018-08-13 19:44] VITALS: BP 132/77
[2018-08-13] MEDS: LORazepam 1 MG TABLET PO PRN (20:04)
[2018-08-13] MEDS: TraZODone HCL 100 MG TABLET PO SCH (20:04)
[2018-08-13] MEDS: ZOLPIDEM TARTRATE 5 MG TABLET PO PRN (20:05)
[2018-08-13 20:08] LABS: GLUCOMETER DEV NAME(LOC) 3EI C; GLUCOSE,POINT OF CARE 236 MG/DL (70-110)
[2018-08-14] MEDS: DiphenhydrAMINE HCL 25 MG CAPSULE PO SCH ×2 (00:01→16:00)
[2018-08-14 06:28] LABS: GLUCOMETER DEV NAME(LOC) 3EI C; GLUCOSE,POINT OF CARE 219 MG/DL (70-110)
[2018-08-14] MEDS: INSULIN LISPRO 100 UNITS/ML SQ PRN ×3 (07:07→20:50)
[2018-08-14] MEDS: MetFORMIN HCL 500 MG TABLET PO SCH ×2 (07:09→16:55)
[2018-08-14] MEDS: OMEPRAZOLE 20 MG CAPSULE PO SCH (10:03)
[2018-08-14] MEDS: THIAMINE HCL 100 MG TABLET PO SCH ×2 (10:03→16:28)
[2018-08-14] MEDS: GABAPENTIN 300 MG CAPSULE PO SCH ×3 (10:03→16:28)
[2018-08-14] MEDS: DULoxetine HCL 30 MG CAPSULE PO SCH (10:03)
[2018-08-14] MEDS: FOLIC ACID 1 MG TABLET PO SCH (10:04)
[2018-08-14] MEDS: ISOSORBIDE MONONITRATE 30 MG ER TABLET PO SCH (10:04)
[2018-08-14] MEDS: MULTIVITAMINS WITH MINERALS, THERAPEUTIC TABLET PO SCH (10:04)
[2018-08-14 10:59] VITALS: BP 137/77
[2018-08-14 11:38] LABS: GLUCOMETER DEV NAME(LOC) 3EI C; GLUCOSE,POINT OF CARE 233 MG/DL (70-110)
[2018-08-14] MEDS: LORazepam 1 MG TABLET PO PRN (16:29)
[2018-08-14] MEDS ORDERED: DEXTROSE 50%-WATER 25 GM/50 ML SYRINGE IVP PRN (16:30)
[2018-08-14 16:33] LABS: GLUCOMETER DEV NAME(LOC) 3EI C; GLUCOSE,POINT OF CARE 409 MG/DL (70-110)
[2018-08-14] MEDS ORDERED: INSULIN LISPRO 100 UNITS/ML SQ ONE (19:00)
[2018-08-14 19:03] VITALS: BP 147/89
[2018-08-14 20:38] LABS: GLUCOMETER DEV NAME(LOC) 3EI C; GLUCOSE,POINT OF CARE 197 MG/DL (70-110)
[2018-08-14] MEDS: ZOLPIDEM TARTRATE 5 MG TABLET PO PRN (20:51)
[2018-08-14] MEDS: TraZODone HCL 100 MG TABLET PO SCH (20:51)
[2018-08-15] MEDS: DiphenhydrAMINE HCL 25 MG CAPSULE PO SCH ×4 (00:14→23:37)
[2018-08-15 05:33] LABS: GLUCOMETER DEV NAME(LOC) 3EI C; GLUCOSE,POINT OF CARE 207 MG/DL (70-110)
[2018-08-15] MEDS: MetFORMIN HCL 500 MG TABLET PO SCH ×2 (06:57→16:30)
[2018-08-15] MEDS: INSULIN LISPRO 100 UNITS/ML SQ PRN ×4 (06:57→20:55)
[2018-08-15 08:20] VITALS: BP 141/91
[2018-08-15] MEDS: OMEPRAZOLE 20 MG CAPSULE PO SCH (08:35)
[2018-08-15] MEDS: FOLIC ACID 1 MG TABLET PO SCH (08:35)
[2018-08-15] MEDS: DULoxetine HCL 30 MG CAPSULE PO SCH (08:35)
[2018-08-15] MEDS: THIAMINE HCL 100 MG TABLET PO SCH ×2 (08:36→16:30)
[2018-08-15] MEDS: ISOSORBIDE MONONITRATE 30 MG ER TABLET PO SCH (08:36)
[2018-08-15] MEDS: MULTIVITAMINS WITH MINERALS, THERAPEUTIC TABLET PO SCH (08:36)
[2018-08-15] MEDS: GABAPENTIN 300 MG CAPSULE PO SCH ×3 (08:36→16:30)
[2018-08-15] MEDS: LORazepam 1 MG TABLET PO PRN ×2 (08:38→20:59)
[2018-08-15 11:39] LABS: GLUCOMETER DEV NAME(LOC) 3EI C; GLUCOSE,POINT OF CARE 208 MG/DL (70-110)
[2018-08-15 16:28] LABS: GLUCOMETER DEV NAME(LOC) 3EI C; GLUCOSE,POINT OF CARE 176 MG/DL (70-110)
[2018-08-15 19:07] VITALS: BP 134/86
[2018-08-15] MEDS: TraZODone HCL 100 MG TABLET PO SCH (20:24)
[2018-08-15 20:43] LABS: GLUCOMETER DEV NAME(LOC) 3EI C; GLUCOSE,POINT OF CARE 259 MG/DL (70-110)
[2018-08-15] MEDS: ZOLPIDEM TARTRATE 5 MG TABLET PO PRN (20:59)
[2018-08-16 05:12] VITALS: BP 140/83
[2018-08-16 05:28] LABS: GLUCOMETER DEV NAME(LOC) 3EI C; GLUCOSE,POINT OF CARE 180 MG/DL (70-110)
[2018-08-16] MEDS: MetFORMIN HCL 500 MG TABLET PO SCH (06:52)
[2018-08-16] MEDS: INSULIN LISPRO 100 UNITS/ML SQ PRN (06:53)
[2018-08-16] MEDS: FOLIC ACID 1 MG TABLET PO SCH (09:25)
[2018-08-16] MEDS: THIAMINE HCL 100 MG TABLET PO SCH (09:25)
[2018-08-16] MEDS: GABAPENTIN 300 MG CAPSULE PO SCH (09:25)
[2018-08-16] MEDS: OMEPRAZOLE 20 MG CAPSULE PO SCH (09:25)
[2018-08-16] MEDS: ISOSORBIDE MONONITRATE 30 MG ER TABLET PO SCH (09:26)
[2018-08-16] MEDS: MULTIVITAMINS WITH MINERALS, THERAPEUTIC TABLET PO SCH (09:26)
[2018-08-16] MEDS: DiphenhydrAMINE HCL 25 MG CAPSULE PO SCH (09:26)
[2018-08-16] MEDS: DULoxetine HCL 30 MG CAPSULE PO SCH (09:26)
[2018-08-16] MEDS ORDERED: TRAZ-220 PO (09:31)
[2018-08-16] MEDS ORDERED: DIPH25 PO (09:31)
[2018-08-16] MEDS ORDERED: DULO30CA2 PO (09:31)
[2018-08-16] MEDS ORDERED: GABA-531 PO (09:31)
[2018-08-16] MEDS ORDERED: ISOS30TA6 PO (10:05)
[2018-08-16] MEDS ORDERED: OMEP20 PO (10:05)
[2018-08-16] MEDS ORDERED: METF-960 PO (10:05)
== END 2018-08-16 11:30 | disposition home or self-care (01) | DRG 751 ==
LOC: EMS 18:55 → 3EI 22:00
PROVIDERS: ADMIT Psychiatry & Neurology Psychiatry; ATTEND Psychiatry & Neurology Psychiatry
DX: F33.2 Major depressive disorder, recurrent severe without psychotic features (principal); R45.851 Suicidal ideations; E66.01 Morbid (severe) obesity due to excess calories; I69.351 Hemiplegia and hemiparesis following cerebral infarction affecting right dominant side; E11.9 Type 2 diabetes mellitus without complications; F41.9 Anxiety disorder, unspecified; A15.9 Respiratory tuberculosis unspecified; G47.00 Insomnia, unspecified; G47.30 Sleep apnea, unspecified; J45.909 Unspecified asthma, uncomplicated; M45.9 Ankylosing spondylitis of unspecified sites in spine; Z87.01 Personal history of pneumonia (recurrent); Z91.19 Patient's noncompliance with other medical treatment and regimen; Z79.899 Other long term (current) drug therapy; Z88.0 Allergy status to penicillin; Z91.013 Allergy to seafood; Z79.4 Long term (current) use of insulin; Z79.82 Long term (current) use of aspirin; Z68.41 Body mass index [BMI] 40.0-44.9, adult
CPT/HCPCS: 83036; 84439; 84443; 87081; G0480; J1815

== ENCOUNTER 2019-12-25 18:25 | Emergency (ER) | payer MEDICAID, OTHER ==
[~2019-12-25] VITALS: Ht 182.9 cm; Wt 86.0 kg
[~2019-12-25 18:25] MED LIST changes: -AMLO2.5T3 PO; -ASPI81 PO; -BACL10TA PO; -BECL10.6 IH; -DICL2100G TP; -DSS100 PO; -DULO20CA30 PO; +DULO30CA2 PO; +GABA-531 PO; -GABA-533 PO; -GLIP10 PO; -INSLAN SQ; -ISON300 PO; -LOSA50TA25 PO; -METO25 PO; -PRAV20TA4 PO; -PRAZ1 PO; -PYRI50TA9 PO; -SITA50 PO; -SULF500T60 PO; -TRAZ-220 PO; +TRAZ-257 PO
[2019-12-25 18:46] VITALS: BP 146/95
[2019-12-25 18:57] LABS: GLUCOSE,POINT OF CARE 73 MG/DL (70-110)
== END 2019-12-25 21:00 | disposition left against medical advice (07) ==
LOC: EMS 18:26
DX: R46.89 Other symptoms and signs involving appearance and behavior (principal); Z53.21 Procedure and treatment not carried out due to patient leaving prior to being seen by health care provider

== ENCOUNTER 2022-10-07 12:43 | Emergency (ER) | payer MEDICARE, OTHER ==
[~2022-10-07] VITALS: Ht 177.8 cm; Wt 85.5 kg
[~2022-10-07 12:43] MED LIST changes: +DULO-114 PO; -DULO30CA2 PO; -ISOS30TA6 PO; +ISOS30TA92 PO; +METF-1211 PO; -METF-960 PO
[2022-10-07 13:32] LABS: BASOPHILS % (AUTO) 0.9 % (0.0-2.0); EOSINOPHILS % (AUTO) 1.3 % (1.0-6.0); HEMATOCRIT 45.4 % (41-53); HEMOGLOBIN 15.3 g/dL (13.5-17.5); LYMPHOCYTES # (AUTO) 2.6 K/uL (1.0-4.8); LYMPHOCYTES % (AUTO) 31.4 % (22.0-44.0); MEAN CORPUSCULAR HEMOGLOBIN 32.3 pg (26.0-34.0); MEAN CORPUSCULAR HGB CONC 33.7 G/dL (31.0-37.0); MEAN CORPUSCULAR VOLUME 96 fL (80-100); MONOCYTES # (AUTO) 0.5 K/uL (0.1-1.0); MONOCYTES % (AUTO) 5.4 % (2.0-9.0); NEUTROPHILS # (AUTO) 5.1 K/uL (1.8-7.7); PLATELET COUNT (AUTO) 172 K/uL (150-450); RED BLOOD CELL COUNT(AUTO) 4.74 MIL/uL (4.50-5.90); RED CELL DISTRIBUTION WIDTH 13.4 % (11.5-14.5)
[2022-10-07 13:41] LABS: ANION GAP 4 mmol/L (8-16); CALCIUM, TOTAL 9.2 mg/dL (8.8-10.5); CARBON DIOXIDE 28 mmol/L (22-29); CHLORIDE 105 mmol/L (98-107); CREATININE 0.79 mg/dL (0.60-1.30); GLOMERULAR FILTR. RATE CALC > 60 mL/min (>60); GLUCOSE,RANDOM 111 mg/dL (70-110); SODIUM SERUM 137 mmol/L (136-145); UREA NITROGEN, BLOOD 7 mg/dL (7-18)
[2022-10-07 13:46] LABS: ALANINE AMINOTRANSFERASE 30 U/L (12-78); ALBUMIN 4.2 g/dL (3.4-5.0); ALKALINE PHOSPHATASE 124 U/L (46-116); ASPARTATE AMINOTRANSFERASE 24 U/L (15-37); BILIRUBIN,TOTAL 0.8 mg/dL (0.1-1.0); TOTAL PROTEIN, SERUM 7.8 g/dL (6.4-8.2)
[2022-10-07] MEDS ORDERED: KETOROLAC TROMETHAMINE 30 MG/ML VIAL IM ONE (14:45)
[2022-10-07] MEDS ORDERED: TraMADol HCL 50 MG TABLET PO ONE (14:45)
[2022-10-07 16:00] VITALS: BP 143/83
== END 2022-10-07 16:57 | disposition home or self-care (01) ==
LOC: EMS 12:45
DX: R45.851 Suicidal ideations (principal); G89.29 Other chronic pain; F32.A Depression, unspecified; M45.9 Ankylosing spondylitis of unspecified sites in spine; Z88.0 Allergy status to penicillin
CPT/HCPCS: 99284; 80053; 82962; 85025; 36415; 96372; G0480; J1885

== ENCOUNTER 2024-06-21 01:51 | Inpatient (IN) | payer MEDICARE, OTHER ==
[~2024-06-21] VITALS: Ht 177.8 cm; Wt 89.6 kg
[2024-06-21] MEDS: LORazepam 2 MG/ML VIAL IVP ONE (01:50)
[~2024-06-21 01:51] MED LIST changes: +DIPH-1243 PO; -DIPH25 PO
[2024-06-21] MEDS: LevETIRAcetam 1,000 MG in DEXTROSE 5%-WATER 100 ML IV ONE (02:05)
[2024-06-21 02:14] LABS: HEMATOCRIT 40.1 % (41-53); MEAN CORPUSCULAR HEMOGLOBIN 31.4 pg (26.0-34.0); MEAN CORPUSCULAR HGB CONC 32.5 G/dL (31.0-37.0); MEAN CORPUSCULAR VOLUME 97 fL (80-100); PLATELET COUNT (AUTO) 186 K/uL (150-450); RED BLOOD CELL COUNT(AUTO) 4.15 MIL/uL (4.50-5.90); RED CELL DISTRIBUTION WIDTH 16.5 % (11.5-14.5); WHITE BLOOD COUNT (AUTO) 6.8 K/uL (4.5-11.0)
[2024-06-21 02:16] LABS: BAND NEUTROPHILS % (MANUAL) 0 % (0-5)
[2024-06-21] MEDS: ONDANSETRON HCL 4 MG/2 ML VIAL IVP ONE (02:16)
[2024-06-21] MEDS: SODIUM CHLORIDE 0.9% 1,000 ML IV ONE ×2 (02:16→14:12)
[2024-06-21 02:29] LABS: ALCOHOL, BLOOD (SERUM) 129 mg/dL (0-10)
[2024-06-21 02:30] LABS: ANION GAP 13 mmol/L (8-16); CALCIUM, TOTAL 8.3 mg/dL (8.8-10.5); CARBON DIOXIDE 25 mmol/L (22-29); CHLORIDE 105 mmol/L (98-107); CREATININE 0.65 mg/dL (0.60-1.30); GLOMERULAR FILTR. RATE CALC > 60 mL/min (>60); GLUCOSE,RANDOM 99 mg/dL (70-110); POTASSIUM 3.2 mmol/L (3.5-5.1); SODIUM SERUM 143 mmol/L (136-145); UREA NITROGEN, BLOOD 5 mg/dL (7-18)
[2024-06-21 02:37] LABS: TROPONIN I-HIGH SENSITIVITY 7 ng/L (<76)
[2024-06-21 02:54] LABS: ALANINE AMINOTRANSFERASE 73 U/L (12-78); ALBUMIN 3.9 g/dL (3.4-5.0); ALKALINE PHOSPHATASE 175 U/L (46-116); ASPARTATE AMINOTRANSFERASE 100 U/L (15-37); BILIRUBIN,TOTAL 1.2 mg/dL (0.1-1.0); CREATINE KINASE, TOTAL ONLY 259 U/L (39-308); TOTAL PROTEIN, SERUM 7.2 g/dL (6.4-8.2)
[2024-06-21 02:57] LABS: B-TYPE NATRIURETIC PEPTIDE 130 pg/mL (0-100)
[2024-06-21 03:11] LABS: LYMPHOCYTES % (MANUAL) 63 % (22-44); MONOCYTES % (MANUAL) 2 % (2-9); SEGMENTED NEUTROPHILS % 35 % (40-70); TOTAL CELLS COUNTED 100
[2024-06-21 03:31] LABS: COVID AG,FIA SOURCE NASAL SWAB
[2024-06-21] MEDS: MORPHINE SULFATE 2 MG/ML SYRINGE IVP ONE ×2 (03:39→06:45)
[2024-06-21 03:40] LABS: APPEARANCE,URINE CLEAR (CLEAR); BILIRUBIN,URINE NEGATIVE (NEGATIVE); COLOR,URINE LIGHT YELLOW (YELLOW); GLUCOSE, URINE (UA) NEGATIVE (NEGATIVE); KETONES,URINE NEGATIVE (NEGATIVE); LEUKOCYTE ESTERASE ,URINE NEGATIVE (NEGATIVE); NITRATE,URINE NEGATIVE (NEGATIVE); OCCULT BLOOD,URINE NEGATIVE (NEGATIVE); PROTEIN,URINE NEGATIVE (NEGATIVE); UROBILINOGEN,URINE <=1.0 mg/dL (<=1.0)
[2024-06-21 03:48] LABS: ALCOHOL, URINE DRUG SCREEN POSITIVE (NEGATIVE); AMPHET/METH SCREEN,URINE NEGATIVE (NEGATIVE); BARBITURATE SCREEN, URINE NEGATIVE (NEGATIVE); BENZODIAZEPINES SCREEN,URINE POSITIVE (NEGATIVE); CANNABINOID SCREEN,URINE POSITIVE (NEGATIVE); COCAINE SCREEN,URINE NEGATIVE (NEGATIVE); METHADONE SCREEN, URINE NEGATIVE (NEGATIVE); OPIATE SCREEN,URINE NEGATIVE (NEGATIVE); PHENCYCLIDINE SCREEN,URINE NEGATIVE (NEGATIVE)
[2024-06-21 03:55] LABS: SARS-COV2 (COVID) ANTIGEN,FIA Negative (Negative)
[2024-06-21] MEDS: PROMETHAZINE HCL 6.25 MG/5 ML SOLUTION ORAL.SYG PO ONE (08:16)
[2024-06-21] MEDS: LORazepam 2 MG/ML VIAL IVP PRN (09:45)
[2024-06-21 10:49] VITALS: BP 172/88; PULSE 71; RESP 19; TEMP 98.1; O2SAT 99
[2024-06-21 11:06] LABS: GLUCOMETER DEV NAME(LOC) 5N.2C; GLUCOSE,POINT OF CARE 95 MG/DL (70-110)
[2024-06-21] MEDS: GABAPENTIN 400 MG CAPSULE PO SCH (13:00)
[2024-06-21] MEDS ORDERED: MAGNESIUM HYDROXIDE SUSPENSION 30 ML UDCUP PO PRN (13:30)
[2024-06-21] MEDS ORDERED: DEXTROSE 50%-WATER 25 GM/50 ML SYRINGE IVP PRN (13:30)
[2024-06-21] MEDS ORDERED: LORazepam 2 MG/ML VIAL IVP PRN (13:30)
[2024-06-21] MEDS ORDERED: HALOPERIDOL LACTATE 5 MG/ML VIAL IM ONE (15:45)
[2024-06-21 16:00] VITALS: BP 143/75; PULSE 73; RESP 16; TEMP 98.1; O2SAT 97
[2024-06-21] MEDS ORDERED: DIAZEPAM 10 MG TABLET PO PRN (16:00)
[2024-06-21] MEDS ORDERED: PROM25SU10 PR (16:27)
[2024-06-21] MEDS ORDERED: AMLO5TAB66 PO (16:27)
[2024-06-21] MEDS ORDERED: PROC10TA61 PO (16:50)
[2024-06-21] MEDS ORDERED: LIDO700A15 TD (16:50)
[2024-06-21] MEDS ORDERED: LEVE10006 PO (16:50)
[2024-06-21] MEDS ORDERED: HALO1TAB19 PO (16:50)
[2024-06-21] MEDS ORDERED: DIAZ10 PO (16:50)
[2024-06-21] MEDS: HALOPERIDOL LACTATE 5 MG/ML VIAL IM ONE (17:01)
[2024-06-21] MEDS: DiphenhydrAMINE HCL 50 MG/ML VIAL IM ONE (17:02)
[2024-06-21] MEDS: LORazepam 2 MG/ML VIAL IM ONE (17:02)
[2024-06-21] MEDS: DIAZEPAM 10 MG TABLET PO ONE (17:28)
[2024-06-21] MEDS: HEPARIN SODIUM,PORCINE 5,000 UNITS/ML VIAL SQ SCH (17:28)
[2024-06-21] MEDS: GABAPENTIN 300 MG CAPSULE PO PRN (17:28)
[2024-06-21 18:11] LABS: GLUCOMETER DEV NAME(LOC) 5N.2C; GLUCOSE,POINT OF CARE 105 MG/DL (70-110)
[2024-06-21] MEDS ORDERED: POTASSIUM CHL 10 MEQ/WATER 50 ML IV PRN (19:15)
[2024-06-21] MEDS ORDERED: PROM12.513 PO (19:18)
[2024-06-21] MEDS ORDERED: PANT40TA54 PO (19:18)
[2024-06-21] MEDS ORDERED: VALP250C48 PO (19:18)
[2024-06-21] MEDS ORDERED: ALBU18HF12 IH (19:18)
[2024-06-21] MEDS ORDERED: RISA150P SQ (19:18)
[2024-06-21] MEDS ORDERED: METH-812 PO (19:18)
[2024-06-21 20:32] VITALS: BP 142/62; PULSE 74; RESP 19; TEMP 98.3; O2SAT 96
[2024-06-21] MEDS: MELATONIN 5 MG TABLET PO SCH (21:02)
[2024-06-21] MEDS: POTASSIUM CHLORIDE 20 MEQ ER TABLET PO PRN (21:02)
[2024-06-21] MEDS: DOCUSATE SODIUM 100 MG CAPSULE PO SCH (21:03)
[2024-06-21] MEDS: DIVALPROEX SODIUM 500 MG DR TABLET PO SCH (21:03)
[2024-06-21] MEDS: HALOPERIDOL 1 MG TABLET PO SCH (21:03)
[2024-06-21] MEDS: FAMOTIDINE 20 MG TABLET PO SCH (21:03)
[2024-06-21] MEDS: LevETIRAcetam 750 MG in DEXTROSE 5%-WATER 100 ML IV SCH (22:17)
[2024-06-22 01:06] VITALS: BP 139/81; PULSE 63; RESP 19; TEMP 98.5; O2SAT 97
[2024-06-22 04:35] VITALS: BP 145/83; PULSE 67; RESP 18; TEMP 97.9; O2SAT 99
[2024-06-22 06:46] LABS: GLUCOMETER DEV NAME(LOC) 5S.1C; GLUCOSE,POINT OF CARE 97 MG/DL (70-110)
[2024-06-22 06:46] LABS: GLUCOMETER DEV NAME(LOC) 5S.1C; GLUCOSE,POINT OF CARE 83 MG/DL (70-110)
[2024-06-22 06:49] LABS: BASOPHILS % (AUTO) 0.9 % (0.0-2.0); EOSINOPHILS % (AUTO) 2.3 % (1.0-6.0); HEMATOCRIT 37.3 % (41-53); HEMOGLOBIN 12.2 g/dL (13.5-17.5); LYMPHOCYTES # (AUTO) 1.9 K/uL (1.0-4.8); LYMPHOCYTES % (AUTO) 32.4 % (22.0-44.0); MEAN CORPUSCULAR HEMOGLOBIN 31.8 pg (26.0-34.0); MEAN CORPUSCULAR HGB CONC 32.6 G/dL (31.0-37.0); MEAN CORPUSCULAR VOLUME 97 fL (80-100); MONOCYTES # (AUTO) 0.3 K/uL (0.1-1.0); MONOCYTES % (AUTO) 5.9 % (2.0-9.0); NEUTROPHILS # (AUTO) 3.4 K/uL (1.8-7.7); NEUTROPHILS % (AUTO) 58.5 % (40.0-70.0); PLATELET COUNT (AUTO) 166 K/uL (150-450); RED BLOOD CELL COUNT(AUTO) 3.83 MIL/uL (4.50-5.90); RED CELL DISTRIBUTION WIDTH 16.2 % (11.5-14.5); WHITE BLOOD COUNT (AUTO) 5.8 K/uL (4.5-11.0)
[2024-06-22 06:58] LABS: ANION GAP 10 mmol/L (8-16); CALCIUM, TOTAL 8.2 mg/dL (8.8-10.5); CARBON DIOXIDE 26 mmol/L (22-29); CHLORIDE 106 mmol/L (98-107); CREATININE 0.74 mg/dL (0.60-1.30); GLOMERULAR FILTR. RATE CALC > 60 mL/min (>60); GLUCOSE,RANDOM 78 mg/dL (70-110); POTASSIUM 3.2 mmol/L (3.5-5.1); SODIUM SERUM 142 mmol/L (136-145); UREA NITROGEN, BLOOD 7 mg/dL (7-18)
[2024-06-22] MEDS ORDERED: DIAZEPAM 10 MG TABLET PO PRN (07:00)
[2024-06-22 07:23] VITALS: BP 148/84; PULSE 66; RESP 18; TEMP 98; O2SAT 96
[2024-06-22] MEDS: MULTIVITAMINS WITH MINERALS, THERAPEUTIC TABLET PO SCH (08:35)
[2024-06-22] MEDS: NICOTINE 7 MG/24 HOUR PATCH TD SCH (08:35)
[2024-06-22] MEDS: DULoxetine HCL 30 MG CAPSULE PO SCH (08:35)
[2024-06-22] MEDS: DIAZEPAM 10 MG TABLET PO SCH (08:35)
[2024-06-22] MEDS ORDERED: SODIUM CHLORIDE 0.9% 250 ML IV ONE (09:41)
[2024-06-22] MEDS: ACETAMINOPHEN 325 MG TABLET PO PRN (09:43)
[2024-06-22] MEDS: ONDANSETRON HCL 4 MG/2 ML VIAL IVP PRN (09:53)
[2024-06-22] MEDS: ATORVASTATIN CALCIUM 20 MG TABLET PO SCH (11:10)
[2024-06-22] MEDS: ASPIRIN 81 MG CHEWABLE TABLET PO SCH (11:10)
[2024-06-22] MEDS: MORPHINE SULFATE 2 MG/ML SYRINGE IVP PRN (11:11)
[2024-06-22 15:02] VITALS: BP 137/95; PULSE 79; RESP 18; TEMP 98.1; O2SAT 97
[2024-06-22] MEDS: INSULIN LISPRO 100 UNITS/ML SQ PRN (17:38)
[2024-06-22 19:21] VITALS: BP 149/94; PULSE 73; RESP 19; TEMP 98.5; O2SAT 99
[2024-06-22 21:05] LABS: GLUCOMETER DEV NAME(LOC) 5N.2C; GLUCOSE,POINT OF CARE 170 MG/DL (70-110)
[2024-06-22 21:05] LABS: GLUCOMETER DEV NAME(LOC) 5N.2C; GLUCOSE,POINT OF CARE 152 MG/DL (70-110)
[2024-06-22 21:05] LABS: GLUCOMETER DEV NAME(LOC) 5N.2C; GLUCOSE,POINT OF CARE 108 MG/DL (70-110)
[2024-06-22 23:30] LABS: GLUCOMETER DEV NAME(LOC) 6S.2; GLUCOSE,POINT OF CARE 139 MG/DL (70-110)
[2024-06-23] MEDS: ZOLPIDEM TARTRATE 5 MG TABLET PO PRN (02:48)
[2024-06-23 05:09] VITALS: BP 140/86; PULSE 62; RESP 18; TEMP 97.7; O2SAT 99
[2024-06-23 06:00] LABS: GLUCOMETER DEV NAME(LOC) 6S.2; GLUCOSE,POINT OF CARE 83 MG/DL (70-110)
[2024-06-23 09:29] VITALS: BP 149/90; PULSE 63; RESP 20; TEMP 98.6; O2SAT 96
[2024-06-23] MEDS: LevETIRAcetam 250 MG TABLET PO SCH (11:00)
[2024-06-23 11:25] LABS: GLUCOMETER DEV NAME(LOC) 6S.2; GLUCOSE,POINT OF CARE 104 MG/DL (70-110)
[2024-06-23 16:05] VITALS: BP 155/96; PULSE 68; RESP 20; TEMP 98.2; O2SAT 97
[2024-06-23 18:26] LABS: GLUCOMETER DEV NAME(LOC) 6S.2; GLUCOSE,POINT OF CARE 99 MG/DL (70-110)
[2024-06-23 21:00] VITALS: BP 129/76; PULSE 62; RESP 18; TEMP 98.6; O2SAT 98
[2024-06-23 22:12] VITALS: BP 142/87; PULSE 67; RESP 18; O2SAT 96
[2024-06-24 05:29] VITALS: BP 125/89; PULSE 59; RESP 18; TEMP 97.8; O2SAT 99
[2024-06-24 06:45] LABS: GLUCOMETER DEV NAME(LOC) 6S.2; GLUCOSE,POINT OF CARE 84 MG/DL (70-110)
[2024-06-24 06:45] LABS: GLUCOMETER DEV NAME(LOC) 6S.2; GLUCOSE,POINT OF CARE 85 MG/DL (70-110)
[2024-06-24] MEDS ORDERED: DIAZEPAM 5 MG TABLET PO PRN (07:00)
[2024-06-24 08:00] VITALS: BP 124/88; PULSE 58; RESP 19; TEMP 98; O2SAT 98
[2024-06-24 08:23] LABS: BASOPHILS % (AUTO) 1.1 % (0.0-2.0); EOSINOPHILS % (AUTO) 3.1 % (1.0-6.0); HEMATOCRIT 34.5 % (41-53); HEMOGLOBIN 11.5 g/dL (13.5-17.5); LYMPHOCYTES # (AUTO) 2.6 K/uL (1.0-4.8); LYMPHOCYTES % (AUTO) 36.7 % (22.0-44.0); MEAN CORPUSCULAR HEMOGLOBIN 32.4 pg (26.0-34.0); MEAN CORPUSCULAR HGB CONC 33.4 G/dL (31.0-37.0); MEAN CORPUSCULAR VOLUME 97 fL (80-100); MONOCYTES # (AUTO) 0.4 K/uL (0.1-1.0); MONOCYTES % (AUTO) 5.2 % (2.0-9.0); NEUTROPHILS # (AUTO) 3.8 K/uL (1.8-7.7); NEUTROPHILS % (AUTO) 53.9 % (40.0-70.0); PLATELET COUNT (AUTO) 138 K/uL (150-450); RED BLOOD CELL COUNT(AUTO) 3.55 MIL/uL (4.50-5.90); RED CELL DISTRIBUTION WIDTH 16.2 % (11.5-14.5)
[2024-06-24] MEDS: DIAZEPAM 5 MG TABLET PO SCH (08:24)
[2024-06-24 13:27] LABS: GLUCOMETER DEV NAME(LOC) 6S.2; GLUCOSE,POINT OF CARE 86 MG/DL (70-110)
[2024-06-24] MEDS ORDERED: DIAZ-328 PO (15:45)
[2024-06-24 15:49] VITALS: BP 141/89; PULSE 61; RESP 19; TEMP 98.1; O2SAT 100
[2024-06-24] MEDS ORDERED: DIVA-112 PO (15:51)
[2024-06-24] MEDS ORDERED: ASPI-1450 PO (15:52)
[2024-06-24] MEDS ORDERED: DULO-114 PO (15:53)
[2024-06-24] MEDS ORDERED: FAMO20 PO (15:53)
[2024-06-24] MEDS ORDERED: ATOR20TA PO (15:53)
[2024-06-24] MEDS ORDERED: GABA-1201 PO (15:54)
[2024-06-24] MEDS ORDERED: MELA5TAB40 PO (15:55)
[2024-06-24] MEDS ORDERED: NICO-800 TD (15:56)
[2024-06-24] MEDS ORDERED: MULT-248 PO (15:56)
[2024-06-24] MEDS ORDERED: ACET-2247 PO (15:57)
[2024-06-25] MEDS ORDERED: DIAZEPAM 5 MG TABLET PO PRN (07:00)
== END 2024-06-24 16:35 | disposition home or self-care (01) | DRG 101 ==
LOC: EMS 01:52 → EDH 07:27 → 5S 09:15 → 6N 06-22 19:10
PROVIDERS: ADMIT Hospitalist; ATTEND Hospitalist
DX: G40.909 Epilepsy, unspecified, not intractable, without status epilepticus (principal); R45.851 Suicidal ideations; F33.2 Major depressive disorder, recurrent severe without psychotic features; I69.351 Hemiplegia and hemiparesis following cerebral infarction affecting right dominant side; G89.29 Other chronic pain; Z20.822 Contact with and (suspected) exposure to COVID-19; F10.229 Alcohol dependence with intoxication, unspecified; M45.9 Ankylosing spondylitis of unspecified sites in spine; F12.10 Cannabis abuse, uncomplicated; E11.9 Type 2 diabetes mellitus without complications; F14.10 Cocaine abuse, uncomplicated; I10 Essential (primary) hypertension; Y90.9 Presence of alcohol in blood, level not specified; K21.9 Gastro-esophageal reflux disease without esophagitis; M79.7 Fibromyalgia; Z91.199 Patient's noncompliance with other medical treatment and regimen due to unspecified reason; Z63.5 Disruption of family by separation and divorce; Z79.82 Long term (current) use of aspirin; Z79.84 Long term (current) use of oral hypoglycemic drugs; Z79.899 Other long term (current) drug therapy; Z83.3 Family history of diabetes mellitus; Z88.0 Allergy status to penicillin; Z91.148 Patient's other noncompliance with medication regimen for other reason; Z91.013 Allergy to seafood
CPT/HCPCS: 51702; 70450; 71045; 80048; 80053; 80307; 81003; 82550; 82962; 83880; 84132; 84484; 85025; 93005; 97110; 97116; 97162; 97530; 99285; G0480; J0712; J1200; J1630; J1644; J2060; J2270; J2405; J7030; J7050; J7060; 36415-L1; 36415-TC